=== PATIENT | female | born 1995 | race Caucasian/White ===

== ENCOUNTER 2020-07-25 17:08 | Emergency (ER) | payer BC, MEDICAID, SELFPAY ==
[2020-07-25 17:14] VITALS: BP 122/76; PULSE 104; RESP 16; TEMP 36.7; O2SAT 99; BMI 20.5
--- NOTE | 2020-07-25 18:01 | USR_ITS ---
PROCEDURE INFORMATION: Exam: US , Limited Exam date and time: 07/25/2020 7:18 PM Age: 25 years old Clinical indication: complicated by abdominal or pelvic pain; Lower; First trimester; Gestational age or lmp: 8 w 4 d; ; Prior surgery; Surgery date: 6+ months; Surgery type: C section; Additional info: 8 wks preg; Cramping/bleeding TECHNIQUE: Imaging protocol: Real-time ultrasound of the maternal uterus with image documentation. Exam focused on the clinical indication. Total images: 41 COMPARISON: US OB ALEXIS w BPP 80908/[id number] 11/09/2018 7:48 AM FINDINGS: Gestation: No visible intrauterine gestation. MATERNAL: Uterus: Nongravid appearing anteverted multiparous appearing uterus. No visible intrauterine gestational sac. Endometrial stripe measures 7 mm. Normal transition zone. Homogeneous echotexture to the endometrium. Cervix: Hemorrhagic clot suspected within the endocervical canal. Patient actively passing clots per diamond sizer and grader is note. Right adnexa: Right ovary appears sonographically normal. Right ovary measures 3.2 cm x 2 cm x 2.7 cm. Positive arterial flow. No visible right adnexal mass or cystic lesion within the field of view. Left adnexa: Left ovary appears sonographically normal. Left ovary measures 2.7 cm x 2 cm x 2.6 cm. Positive arterial flow. No visible left adnexal mass or cystic lesion within the field of view. Intraperitoneal space: No free fluid in the cul-de-sac. US/US OB limited [id number] IMPRESSION: 1. No visible intrauterine gestation. 2. Hemorrhagic clot suspected within the endocervical canal. Patient actively passing clots per diamond sizer and grader is note.
[2020-07-25 19:35] LABS: Basophils % 0.3 %; Eosinophils % 0.4 %; Hematocrit 44.1 % (37.0-47.0); Lymphocytes # 2.5 10^3/uL (0.8-4.8); Lymphocytes % 34.9 %; Mean Corpuscular HGB Conc 31.7 g/dL (30.0-36.0); Mean Corpuscular Hemoglobin 28.1 pg (28.0-34.0); Mean Corpuscular Volume 88.4 fL (81-99); Mean Platelet Volume 11.1 fL (7.4-10.4); Monocytes # 0.5 10^3/uL (0.2-0.9); Monocytes % 6.7 %; Neutrophils # 4.12 10^3/uL (1.8-7.7); Neutrophils % 57.6 %; Nucleated Red Blood Cells % 0 %; Platelet Count 179 10^3/cmm (130-400); Red Blood Count 4.99 10^6/uL (4.1-5.3); Red Cell Distribution Width 13.1 % (12.1-15.1); White Blood Count 7.2 10^3/uL (4.0-10.0)
[2020-07-25 20:10] LABS: Alanine Aminotransferase 10 U/L (0-33); Albumin Level 4.5 g/dL (3.5-5.2); Alkaline Phosphatase 49 IU/L (35-105); Anion Gap 12.5 (5-19); Aspartate Amino Transferase 12 U/L (0-32); Blood Urea Nitrogen 8 mg/dL (6-20); Calcium 9.1 mg/dL (8.5-10.5); Carbon Dioxide 25 mmol/L (22-29); Chloride 106 mmol/L (98-107); Globulin 2.8 g/dL (1.3-4.6); Glomerular Filtration Rate 149.1 mL/min (90-130); Glucose 84 mg/dL (65-115); Osmolality Calculated 288 mOsm/kg (285-295); Potassium 3.5 mmol/L (3.5-5.1); Sodium 140 mmol/L (136-145); Total Bilirubin 0.2 mg/dL (0.15-1.2); Total Protein 7.3 g/dL (6.6-8.7)
[2020-07-25 22:17] VITALS: O2SAT 98
--- NOTE | 2020-07-25 22:24 | ED_ITS ---
HPI - Female Genitourinary General: Chief complaint: Vaginal Bleeding Stated complaint: Poss Miscarriage Time Seen by Provider: 07/25/20 21:59 Source: patient Mode of arrival: ambulatory Limitations: no limitations History of Present Illness: HPI Narrative: Patient is a very nice 25-year-old female at approximately 8 weeks here for complaints of vaginal bleeding and cramping that began a few hours prior to arrival. Patient tells me bleeding initially was scant however quickly progressed into heavy bleeding with clots as well as cramping. She is concerned she most likely is experiencing a miscarriage. Patient denies lightheadedness/dizziness or passing out episodes. She does tell me since arrival to the ED the bleeding is improving. MD elicited complaint: vaginal bleeding Onset (ago): hour(s) Severity: moderate Quality of pain: cramping Vaginal discharge: none Vaginal bleeding: moderate, clots and POC/tissue Exacerbating factors: none Relieving factors: none Associated symptoms: Reports abdominal pain (cramping); Deny headache(s), nausea or vaginal discharge Patient : Yes Review of Systems Const: Denies: fever(s), chills, body aches or fatigue Card: Denies: chest pain Resp: Denies: dyspnea GI: Reports: abdominal pain (cramping); Denies: nausea, vomiting or diarrhea : Reports: vaginal bleeding and pelvic pain (cramping); Denies: flank pain, dysuria, vaginal odor or vaginal discharge Musc: Denies: neck pain or back pain Skin/Breast: Denies: rash Neuro: Denies: headache(s) [facility] ED PFSH: Social History (Updated 04/09/20 @ 15:04 by Valerie Davidson LPN) Smoking and tobacco status: never smoked Physical Exam Const: COMMON NORMALS: no acute distress, average body habitus, patient oriented x3, no limitations, healthy appearing, alert and well nourished GI: PALPATION: Yes Tenderness to palpation present (GI) (lower abdominal cramping) : OB/EXTERNAL & SPECULUM: Deferred OB/external & speculum exam MANUAL OB EXAM: Deferred manual OB exam Neuro: COMMON NORMALS: patient oriented x3 SENSORIUM/ORIENTATION: Yes alert Course Vital Signs: Vital signs: Vital Signs Temperature 98.1 F 07/25/20 17:14 Pulse Rate 80 07/25/20 22:41 Respiratory Rate 16 07/25/20 17:14 Blood Pressure 116/77 07/25/20 22:41 Pulse Oximetry 99 07/25/20 22:41 MDM - Female MDM Narrative: Medical decision making narrative: Patient is not tachycardic or hypotensive. H/H are stable. OB US showing no visible intrauterine gestation. hCG today is 260. Recommend she follow-up with Dr. Acosta in the next 3 to 5 days so he may continue to monitor patient. Strict return to ED precautions given regarding worsening bleeding, severe abdominal pain/cramping, fevers, or any other concerns she may have. Lab Data: Labs: Lab Results 07/25/20 07/25/20 07/25/20 Range/Units 19:20 19:20 19:20 WBC 7.2 (4.0-10.0) 10^3/ uL RBC 4.99 (4.1-5.3) 10^6/u L Hgb 14.0 (11.5-15.3) g/dL Hct 44.1 (37.0-47.0) % MCV 88.4 (81-99) fL MCH 28.1 (28.0-34.0) pg MCHC 31.7 (30.0-36.0) g/dL RDW 13.1 (12.1-15.1) % Plt Count 179 (130-400) 10^3/c mm MPV 11.1 H (7.4-10.4) fL Neut % (Auto) 57.6 % Lymph % (Auto) 34.9 % [place] % (Auto) 6.7 % Eos % (Auto) 0.4 % Baso % (Auto) 0.3 % Neut # (Auto) 4.12 (1.8-7.7) 10^3/u L Lymph # (Auto) 2.5 (0.8-4.8) 10^3/u L [place] # (Auto) 0.5 (0.2-0.9) 10^3/u L Eos # (Auto) 0.0 (0.0-0.8) 10^3/u L Baso # (Auto) 0.0 (0.0-0.1) 10^3/u L Nucleated RBC % (a uto) 0 % Nucleated RBCs # 0.0 /100WBC Sodium 140 (136-145) mmol/L Potassium 3.5 (3.5-5.1) mmol/L Chloride 106 (98-107) mmol/L Carbon Dioxide 25 (22-29) mmol/L Anion Gap 12.5 (5-19) BUN 8 (6-20) mg/dL Creatinine 0.5 (0.5-0.9) mg/dL GFR Calculation 149.1 H (90-130) mL/min Glucose 84 (65-115) mg/dL Calculated Osmolal ity 288 (285-295) mOsm/k g Calcium 9.1 (8.5-10.5) mg/dL Total Bilirubin 0.2 (0.15-1.2) mg/dL AST 12 (0-32) U/L ALT 10 (0-33) U/L Alkaline Phosphata se 49 (35-105) IU/L Total Protein 7.3 (6.6-8.7) g/dL Albumin 4.5 (3.5-5.2) g/dL Globulin 2.8 (1.3-4.6) g/dL Ser , Carter i-Qnt 260.10 mIU/mL Blood Type A Positive Rho(D) Type Positive / 4+ Imaging Data: US OB: Radiologist's impression: [address] [address] Ultrasound Report Signed Patient: Karma Lam Unit #: [id number] : 1995 Age/Sex: 25 / F ADM Date: 07/25/20 Loc: ER Room/Bed: Attending Dr: Ordering Provider/Ordering MD: Nancy Velasco Date of Service: 07/25/20 Procedure(s): US OB limited [id number] Accession Number(s): [id number] Report Number: [id number] PROCEDURE INFORMATION: Exam: US , Limited Exam date and time: 07/25/2020 7:18 PM Age: 25 years old Clinical indication: complicated by abdominal or pelvic pain; Lower; First trimester; Gestational age or lmp: 8 w 4 d; ; Prior surgery; Surgery date: 6+ months; Surgery type: C section; Additional info: 8 wks preg; Cramping/bleeding TECHNIQUE: Imaging protocol: Real-time ultrasound of the maternal uterus with image documentation. Exam focused on the clinical indication. Total images: 41 COMPARISON: US OB ALEXIS w BPP [id number] 11/09/2018 7:48 AM FINDINGS: Gestation: No visible intrauterine gestation. MATERNAL: Uterus: Nongravid appearing anteverted multiparous appearing uterus. No visible intrauterine gestational sac. Endometrial stripe measures 7 mm. Normal transition zone. Homogeneous echotexture to the endometrium. Cervix: Hemorrhagic clot suspected within the endocervical canal. Patient actively passing clots per assurance sourcing manager is note. Right adnexa: Right ovary appears sonographically normal. Right ovary measures 3.2 cm x 2 cm x 2.7 cm. Positive arterial flow. No visible right adnexal mass or cystic lesion within the field of view. Left adnexa: Left ovary appears sonographically normal. Left ovary measures 2.7 cm x 2 cm x 2.6 cm. Positive arterial flow. No visible left adnexal mass or cystic lesion within the field of view. Intraperitoneal space: No free fluid in the cul-de-sac. US/US OB limited [id number] IMPRESSION: 1. No visible intrauterine gestation. 2. Hemorrhagic clot suspected within the endocervical canal. Patient actively passing clots per assurance sourcing manager is note. Dictated By: Mark Cagle Signed By: Mark Cagle Signed Date/Time: 07/25/202000 DD/ 58 Discharge Plan Discharge Patient Disposition: Home Clinical Impression: Spontaneous miscarriage Condition: Stable Prescriptions: No Action No Known Home Medications RF: 0 Discharge Orders: Discharge ED (Routine); Ordered 07/25/20 Ordered By: Nancy Velasco Patient Instructions: Spontaneous Miscarriage (ED) Activity Restrictions/Additional Instructions: As we discussed please follow-up with Dr. Acosta in the next 1 to 2 days so he may re-evaluate your bleeding. Please return to the emergency department for worsening or severe bleeding, lightheadedness, dizziness, severe pelvic cramping, passing out episodes, or any other concerns you may have. Coding Level of Care Code ED Head Housekeeper for Filippo Villar
[2020-07-25 22:41] VITALS: BP 116/77; PULSE 80; O2SAT 99
== END 2020-07-25 22:42 | disposition home or self-care (01) ==
PROVIDERS: Emergency Provider Physician Assistant
DX: O03.9 Complete or unspecified spontaneous abortion without complication (principal)
CPT/HCPCS: 76815; 80053; 84702; 85025; 86900; 99283

== ENCOUNTER → 2020-10-03 10:54 | Outpatient (BNVA) | payer BC, MEDICAID, SELFPAY | PROVIDERS: Visit Provider Nurse Practitioner Family | DX: Z20.822 Contact with and (suspected) exposure to COVID-19 (principal); J06.9 Acute upper respiratory infection, unspecified | CPT/HCPCS: 87635 ==

== ENCOUNTER → 2020-10-05 16:04 | Outpatient (BNVA) | payer BC, MEDICAID, SELFPAY | PROVIDERS: Visit Provider Registered Nurse Neonatal Intensive Care | DX: Z20.822 Contact with and (suspected) exposure to COVID-19 (principal) | CPT/HCPCS: 87635 ==

== ENCOUNTER 2021-01-30 08:03 | Emergency (ER) | payer BC, MEDICAID, SELFPAY ==
[2021-01-30 08:14] VITALS: BP 112/76; PULSE 91; RESP 18; TEMP 36.6; O2SAT 100; BMI 19.8
--- NOTE | 2021-01-30 08:31 | CT_ITS ---
WS: [id number] CT HEAD TECHNIQUE: Noncontrast CT of the head obtained from the skullbase to the vertex. CLINICAL INFORMATION: new onset HAs x 2 mo; presyncope COMPARISON: None. DLP: 818.[address] scans at [facility] use at least one of these dose optimization techniques: automated e xposure control; mA and/or kV adjustment per patient size (includes targeted exams where dose is matc hed to clinical indication); or iterative reconstruction. FINDINGS: No evidence of intracranial hemorrhage or mass effect. Ventricular system and basal cisterns are hammer ntNo extra-axial fluid collections. No evidence of mass or mass effect. Normal ovalle-white differentia tion. Partial opacification right maxillary sinus and sphenoid sinus compatible with sinusitis. Mastoid air cells well aerated.. CT/CT head wo con* [id number] IMPRESSION: 1. No evidence of intracranial hemorrhage or mass effect. 2. Partial opacification right maxillary sinus and sphenoid sinus compatible w ith sinusitis 3. No acute intracranial findings.
--- NOTE | 2021-01-30 08:32 | W.ED.HA ---
Documented by User: BREA Hernandez 01/30/21 09:57 HPI - Headache General: Chief Complaint: Headache Stated Complaint: SEVERE H/A SINCE SAT PASSED OUT IN SHOWER Time Seen by Provider: 01/30/21 08:08 Source: patient Mode of arrival: ambulatory Limitations: no limitations History of Present Illness: HPI Narrative: Patient is a nice 25-year-old female who presents to ED today with complaint of a severe headache. Patient tells me over the past 2 months she has been experiencing severe headaches to the point where she is unable to care for her child which is very uncharacteristic for her. She states she gets very nauseous with these headaches. Prior to 2 months ago she would experience a very mild headache on a rare occasion but nothing like these. She states she has tried to see a chiropractor thinking it could be secondary to her neck needing realignment. She has seen an powerplant operator to get her vision checked as she will sometimes experience blurry vision during these episodes. She has taken OTC analgesics without relief. She has tried to alter caffeine intake without noticing much difference. Patient states this headache started on Thursday and is the worst one to date. She states she was in the shower earlier and had what she describes as a presyncopal episode. She states she did not get lightheaded or dizzy but just felt like my body quit working and almost fell. She denies chest pain, shortness of breath, difficulty breathing, palpitations. Patient states she felt jittery and she was signing paperwork upon arrival to the ED. MD elicited complaint: headache Onset (ago): week(s) Location: frontal Severity: severe Exacerbating factors: none Relieving factors: nothing Associated symptoms: Reports nausea; Deny chest pain, confusion, fever(s), lightheadedness, malaise, rash, syncope or vomiting Treatments prior to arrival: none Review of Systems Const: Denies: fever(s), chills, body aches, fatigue or malaise Eyes: Reports: blurry vision (during HAs); Denies: photophobia, eye discomfort, eye discharge, eye redness, dry eyes, floaters or seeing flashes ENMT: Denies: throat pain, odynophagia, nasal discharge or nasal congestion Card: Denies: chest pain, palpitations, irregular heart rhythm, lightheadedness, syncope or dyspnea on exertion Resp: Denies: dyspnea, productive cough or pain on inspiration GI: Reports: nausea; Denies: abdominal pain, vomiting, heartburn or diarrhea : Denies: flank pain or dysuria Musc: Denies: neck pain, back pain or joint pain Skin/Breast: Denies: rash Neuro: Reports: headache(s); Denies: numbness in extremities, weakness in extremities, sensory changes, lack of coordination, difficulty walking, frequent falls, dizziness, vertigo or confusion PFSH ED PFSH: Social History Smoking and tobacco status: never smoked Physical Exam Const: COMMON NORMALS: no acute distress, average body habitus, patient oriented x3, no limitations, healthy appearing, alert and well nourished GENERAL APPEARANCE: cooperative ORIENTATION/CONSCIOUSNESS: Yes awake, Yes oriented to person, Yes oriented to place and Yes oriented to time HENMT: COMMON NORMALS: normocephalic and atraumatic HEAD & SCALP: normal to inspection, normocephalic and atraumatic FACE & SINUS: normal facial exam Neck/C-Spine: COMMON NORMALS: full ROM, no lymphadenopathy and no meningeal signs Chest: COMMONS NORMALS: normal inspection of the chest Resp: COMMON NORMALS: normal respiratory effort and clear to auscultation bilaterally AUSCULTATION: clear to auscultation bilaterally Cardio: COMMON NORMALS: regular rate and regular rhythm RATE: regular rate RHYTHM: regular rhythm : COMMON NORMALS: Yes no CVA tenderness BLADDER/KIDNEY EXAM: Yes no CVA tenderness Back/Pelvis: COMMON NORMALS: no CVA tenderness and thoracic and lumbar spine normal to inspection Extremity: COMMON NORMALS: normal to inspection Neuro: DONNA COMA SCALE: document GCS findings Donna coma scale eye opening: Spontaneous Donna coma scale verbal response: Orientated Donna coma scale motor response: Obey commands Donna coma scale total score: 15 COMMON NORMALS: patient oriented x3, CN's II-XII intact bilaterally, moves all extremities, no focal motor deficits, no sensory deficits noted and gait normal SENSORIUM/ORIENTATION: Yes alert, Yes oriented to person, Yes oriented to place and Yes oriented to time MENINGEAL SIGNS: Yes no meningeal signs SPEECH: speech normal GAIT: Yes Normal gait present Skin: COMMON NORMALS: no rashes or lesions noted GENERAL SKIN EXAM: no rashes or lesions noted Course Vital Signs: Vital signs: Vital Signs Temperature 97.8 F 01/30/21 08:14 Pulse Rate 78 01/30/21 09:00 Respiratory Rate 16 01/30/21 09:00 Blood Pressure 104/68 01/30/21 09:40 Pulse Oximetry 98 01/30/21 09:40 MDM - Headache MDM Narrative: Medical decision making narrative: ALMODOVAR down from an 8/10 to a 4/10 and she feels comfortable going home. Vitals stable. Labs unremarkable. CT imaging negative. No abnormalities noted on physical exam. Recommend followup with PCP in the next 1-2 weeks for further evaluation and treatment. Lab Data: Labs: Lab Results 01/30/21 01/30/21 01/30/21 09:02 09:02 09:02 WBC 5.1 10^3/uL 10^3/ uL (4.0-10.0) RBC 4.76 10^6/uL 10^6 /uL (4.1-5.3) Hgb 13.3 g/dL g/dL (11.5-15.3) Hct 40.0 % % (37.0-47.0) MCV 84.0 fl fl (81-99) MCH 27.9 pg L pg (28.0-34.0) MCHC 33.3 g/dL g/dL (30.0-36.0) RDW 12.8 % % (12.1-15.1) Plt Count 178 10^3/cmm 10^3 /cmm (130-400) MPV 10.7 fL H fL (7.4-10.4) Neut % (Auto) 60.3 % % Lymph % (Auto) 32.2 % % [place] % (Auto) 6.3 % % Eos % (Auto) 0.6 % % Baso % (Auto) 0.4 % % Neut # (Auto) 3.07 10^3/uL 10^3 /uL (1.8-7.7) Lymph # (Auto) 1.6 10^3/uL 10^3/ uL (0.8-4.8) [place] # (Auto) 0.3 10^3/uL 10^3/ uL (0.2-0.9) Eos # (Auto) 0.0 10^3/uL 10^3/ uL (0.0-0.8) Baso # (Auto) 0.0 10^3/uL 10^3/ uL (0.0-0.1) Nucleated RBC % (a uto) 0 % % Nucleated RBCs # 0.0 /100WBC /100W BC Sodium 138 mmol/L mmol/L (136-145) Potassium 4.1 mmol/L mmol/L (3.5-5.1) Chloride 105 mmol/L mmol/L (98-107) Carbon Dioxide 24 mmol/L mmol/L (22-29) Anion Gap 13.1 (5-19) BUN 7 mg/dL mg/dL (6-20) Creatinine 0.5 mg/dL mg/dL (0.5-0.9) GFR Calculation 149.1 mL/min H mL /min (90-130) Glucose 86 mg/dL mg/dL (65-115) Calculated Osmolal ity 283 mOsm/kg L mOs m/kg (285-295) Calcium 8.8 mg/dL mg/dL (8.5-10.5) Total Bilirubin 0.3 mg/dL mg/dL (0.15-1.2) AST 12 U/L U/L (0-32) ALT 8 U/L U/L (0-33) Alkaline Phosphata se 45 IU/L IU/L (35-105) Total Protein 6.5 g/dL L g/dL (6.6-8.7) Albumin 4.1 g/dL g/dL (3.5-5.2) Globulin 2.4 g/dL g/dL (1.3-4.6) TSH 0.81 uIU/mL uIU/m L (0.27-4.20) HCG, Qual Negative (Negative) Imaging Data^: CT Head: Radiologist's impression: [address] [id number] Scan ReportSigned Patient: Karma Lam #: [id number]: [id number]#:[id number]/Sex: 25 / FADM Date: 01/30/21Loc: ERRoom/Bed:Attending Dr: Ordering Provider/Ordering MD: Nancy Velasco Date of Service: 01/30/21 Procedure(s): CT head wo con* [id number] Accession Number(s): [id number] Report Number: [id number] WS: [id number] CT HEAD TECHNIQUE: Noncontrast CT of the head obtained from the skullbase to the vertex. CLINICAL INFORMATION: new onset HAs x 2 mo; presyncope COMPARISON: None. DLP: 818.[address] scans at [facility] use at least one of these dose optimization techniques: automated exposure control; mA and/or kV adjustment per patient size (includes targeted exams where dose is matched to clinical indication); or iterative reconstruction. FINDINGS: No evidence of intracranial hemorrhage or mass effect. Ventricular system and basal cisterns are patentNo extra-axial fluid collections. No evidence of mass or mass effect. Normal ovalle-white differentiation. Partial opacification right maxillary sinus and sphenoid sinus compatible with sinusitis. Mastoid air cells well aerated.. CT/CT head wo con* [id number] IMPRESSION: 1. No evidence of intracranial hemorrhage or mass effect. 2. Partial opacification right maxillary sinus and sphenoid sinus compatible with sinusitis 3. No acute intracranial findings. Dictated By:Fernandez Ortiz MDSigned By:Fernandez Ortiz MDSigned Date/Time:01/30/21/ 8 Discharge Plan Discharge Patient Disposition: Home Clinical Impression: Headache Qualifiers: Headache type: unspecified Headache chronicity pattern: episodic headache Intractability: not intractable Qualified Code(s): R51.9 - Headache, unspecified Condition: Stable Prescriptions: No Action Tylenol Ex Str Rapid Release 500 mg Tablet 1,000 mg PO Q4H PRN (Reason: Pain) RF: 0 ibuprofen 200 mg Tablet 400 mg PO Q4H PRN (Reason: Pain) RF: 0 Discharge Orders: Discharge ED (Routine); Ordered 01/30/21 Ordered By: Nancy Velasco Patient Instructions: Headache - Migraine (Adult), Migraine Headache (ED) Activity Restrictions/Additional Instructions: As we discussed please follow-up with your primary care provider in the next 1 to 2 weeks for further evaluation of headaches. They may also place you on prophylactic and/or abortive medications for treatment of these. Coding Level of Care Code ED Hat Band Attacher for Chg Fwd Exam Comprehensive Documented by User: Abdiaziz Zuleta DO 01/30/21 15:16 HPI - Headache General: Chief Complaint: Headache Stated Complaint: SEVERE H/A SINCE SAT PASSED OUT IN SHOWER Time Seen by Provider: 01/30/21 08:08 PFS ED PFSH: Social History Smoking and tobacco status: never smoked Course Vital Signs: Vital signs: Vital Signs Temperature 97.8 F 01/30/21 08:14 Pulse Rate 78 01/30/21 09:00 Respiratory Rate 16 01/30/21 09:00 Blood Pressure 104/68 01/30/21 09:40 Pulse Oximetry 98 01/30/21 09:40 MDM - Headache MDM Narrative: Medical decision making narrative: Chart reviewed and patient discussed with midlevel. Agree with assessment and plan. Lab Data: Labs: Lab Results 01/30/21 01/30/21 01/30/21 09:02 09:02 09:02 WBC 5.1 10^3/uL 10^3/ uL (4.0-10.0) RBC 4.76 10^6/uL 10^6 /uL (4.1-5.3) Hgb 13.3 g/dL g/dL (11.5-15.3) Hct 40.0 % % (37.0-47.0) MCV 84.0 fl fl (81-99) MCH 27.9 pg L pg (28.0-34.0) MCHC 33.3 g/dL g/dL (30.0-36.0) RDW 12.8 % % (12.1-15.1) Plt Count 178 10^3/cmm 10^3 /cmm (130-400) MPV 10.7 fL H fL (7.4-10.4) Neut % (Auto) 60.3 % % Lymph % (Auto) 32.2 % % [place] % (Auto) 6.3 % % Eos % (Auto) 0.6 % % Baso % (Auto) 0.4 % % Neut # (Auto) 3.07 10^3/uL 10^3 /uL (1.8-7.7) Lymph # (Auto) 1.6 10^3/uL 10^3/ uL (0.8-4.8) [place] # (Auto) 0.3 10^3/uL 10^3/ uL (0.2-0.9) Eos # (Auto) 0.0 10^3/uL 10^3/ uL (0.0-0.8) Baso # (Auto) 0.0 10^3/uL 10^3/ uL (0.0-0.1) Nucleated RBC % (a uto) 0 % % Nucleated RBCs # 0.0 /100WBC /100W BC Sodium 138 mmol/L mmol/L (136-145) Potassium 4.1 mmol/L mmol/L (3.5-5.1) Chloride 105 mmol/L mmol/L (98-107) Carbon Dioxide 24 mmol/L mmol/L (22-29) Anion Gap 13.1 (5-19) BUN 7 mg/dL mg/dL (6-20) Creatinine 0.5 mg/dL mg/dL (0.5-0.9) GFR Calculation 149.1 mL/min H mL /min (90-130) Glucose 86 mg/dL mg/dL (65-115) Calculated Osmolal ity 283 mOsm/kg L mOs m/kg (285-295) Calcium 8.8 mg/dL mg/dL (8.5-10.5) Total Bilirubin 0.3 mg/dL mg/dL (0.15-1.2) AST 12 U/L U/L (0-32) ALT 8 U/L U/L (0-33) Alkaline Phosphata se 45 IU/L IU/L (35-105) Total Protein 6.5 g/dL L g/dL (6.6-8.7) Albumin 4.1 g/dL g/dL (3.5-5.2) Globulin 2.4 g/dL g/dL (1.3-4.6) TSH 0.81 uIU/mL uIU/m L (0.27-4.20) HCG, Qual Negative (Negative) Discharge Plan Discharge Patient Disposition: Home Clinical Impression: Headache Qualifiers: Headache type: unspecified Headache chronicity pattern: episodic headache Intractability: not intractable Qualified Code(s): R51.9 - Headache, unspecified Condition: Stable Prescriptions: No Action Tylenol Ex Str Rapid Release 500 mg Tablet 1,000 mg PO Q4H PRN (Reason: Pain) RF: 0 ibuprofen 200 mg Tablet 400 mg PO Q4H PRN (Reason: Pain) RF: 0 Discharge Orders: Discharge ED (Routine); Ordered 01/30/21 Ordered By: Nancy Velasco Patient Instructions: Headache - Migraine (Adult), Migraine Headache (ED) Activity Restrictions/Additional Instructions: As we discussed please follow-up with your primary care provider in the next 1 to 2 weeks for further evaluation of headaches. They may also place you on prophylactic and/or abortive medications for treatment of these. Coding Level of Care Code ED Hat Band Attacher for Filippo Fwd Exam Comprehensive
[2021-01-30 09:00] VITALS: BP 112/63; PULSE 78; RESP 16; O2SAT 98
[2021-01-30 09:06] LABS: Basophils % 0.4 %; Eosinophils % 0.6 %; Hemoglobin 13.3 g/dL (11.5-15.3); Lymphocytes # 1.6 10^3/uL (0.8-4.8); Lymphocytes % 32.2 %; Mean Corpuscular HGB Conc 33.3 g/dL (30.0-36.0); Mean Corpuscular Hemoglobin 27.9 pg (28.0-34.0); Mean Platelet Volume 10.7 fL (7.4-10.4); Monocytes # 0.3 10^3/uL (0.2-0.9); Monocytes % 6.3 %; Neutrophils # 3.07 10^3/uL (1.8-7.7); Neutrophils % 60.3 %; Nucleated Red Blood Cells % 0 %; Platelet Count 178 10^3/cmm (130-400); Red Blood Count 4.76 10^6/uL (4.1-5.3); Red Cell Distribution Width 12.8 % (12.1-15.1); White Blood Count 5.1 10^3/uL (4.0-10.0)
[2021-01-30] MEDS: diphenhydrAMINE 50 mg/mL SDV 1mL 25 MG IVP (09:14)
[2021-01-30] MEDS: dexamethasone 10 mg/mL INJ 6 MG IV (09:14)
[2021-01-30] MEDS: ondansetron 2 mg/ML SDV 2 mL 4 MG IVP (09:15)
[2021-01-30] MEDS: ketorolac 60 mg/2 mL INJ 30 MG IVP (09:15)
[2021-01-30 09:29] LABS: HCG, Serum Qual Negative (Negative)
[2021-01-30 09:40] VITALS: BP 104/68; O2SAT 98
[2021-01-30 09:48] LABS: Alanine Aminotransferase 8 U/L (0-33); Albumin Level 4.1 g/dL (3.5-5.2); Alkaline Phosphatase 45 IU/L (35-105); Anion Gap 13.1 (5-19); Aspartate Amino Transferase 12 U/L (0-32); Blood Urea Nitrogen 7 mg/dL (6-20); Calcium 8.8 mg/dL (8.5-10.5); Carbon Dioxide 24 mmol/L (22-29); Chloride 105 mmol/L (98-107); Globulin 2.4 g/dL (1.3-4.6); Glomerular Filtration Rate 149.1 mL/min (90-130); Glucose 86 mg/dL (65-115); Osmolality Calculated 283 mOsm/kg (285-295); Potassium 4.1 mmol/L (3.5-5.1); Sodium 138 mmol/L (136-145); Thyroid Stimulating Hormone 0.81 uIU/mL (0.27-4.20); Total Bilirubin 0.3 mg/dL (0.15-1.2); Total Protein 6.5 g/dL (6.6-8.7)
== END 2021-01-30 10:16 | disposition home or self-care (01) ==
PROVIDERS: Emergency Provider Physician Assistant
DX: R51.9 Headache, unspecified (principal)
CPT/HCPCS: 70450; 80053; 84443; 84703; 85025; 96374; 96375; 99284; J1100; J1200; J1885; J2405

== ENCOUNTER 2021-12-16 06:48 | Inpatient (IN) | payer BC, MEDICAID, SELFPAY ==
--- NOTE | 2021-11-27 16:03 | P.ANESASSM_ITS ---
Pre-Anesthetic Assessment Height/Weight: Height 1.73 m Preop Diagnosis: Repeat c section Operation Date: 12/16/21 07:00 Proposed Procedures p Section Repeat(Not Applicable) - Vinny Carter MD Familial anesthetic complications: None Was Beta Crow taken within 24 hours: N/A Was Clonidine taken within 24 hours: N/A Last intake: Full stomach Social No alcohol and No tobacco Exam alert, oriented x 3, clear to auscultation bilaterally and regular rate & rhythm Airway Submandibular: within normal limits Cervical ROM: within normal limits Mallampati: Class II Dentition: full History/ROS No significant history except as noted and No significant complaints Pulmonary None reported CV/HEM None reported None reported Hepatic None reported GI Gastroesophageal Reflux Disease Metabolic None reported Musc/skel None reported Neuropsych None reported Anesthetic Plan ASA status: 2 Anesthesia: Anesthesia Evaluation, Eval. for regional block, General and Regional (specify below) (Spinal) Other: We discussed risk and benefits of spinal anesthesia including infection, paralysis/catastrophic nerve injury, back bruising/pain, PDPH, conversion to general in case of spinal failure, intraoperative and PONV, life threatening allergic reaction, post operative ICU admission requiring prolonged intubation, stroke, heart attack. Risk of > 500 ml blood loss (7ml/kg in children): No Medications/Allergies Home Medications Medication Instructions Recorded Confirmed Last Taken Type acetaminophen 500 mg tablet 1,000 mg PO Q4H PRN Pain 01/30/21 01/30/21 01/30/21 07:00 History ibuprofen 200 mg tablet 400 mg PO Q4H PRN Pain 01/30/21 01/30/21 Unknown History Allergies Allergy/AdvReac Type Severity Reaction Status Date / Time morphine Allergy rash Verified 01/30/21 08:59 [facility] Anesthesia Social History Smoking and tobacco status: never smoked Data Anesthesia Cardiac Studies: No Data to Display
[2021-12-16] VITALS (99 sets, daily range): BP systolic 93–135; BP diastolic 46–74; PULSE 77–122; RESP 16–18; TEMP 36.1–37; O2SAT 86–100; BMI 26.3
[2021-12-16 05:46] LABS: Basophils % 0.2 %; Eosinophils % 0.3 %; Hematocrit 31.2 % (37.0-47.0); Hemoglobin 9.6 g/dL (11.5-15.3); Lymphocytes # 2.1 10^3/uL (0.8-4.8); Lymphocytes % 23.3 %; Mean Corpuscular HGB Conc 30.8 g/dL (30.0-36.0); Mean Corpuscular Hemoglobin 23.5 pg (28.0-34.0); Mean Corpuscular Volume 76.5 fl (81-99); Mean Platelet Volume 11.2 fL (7.4-10.4); Monocytes # 0.6 10^3/uL (0.2-0.9); Monocytes % 6.3 %; Neutrophils # 6.06 10^3/uL (1.8-7.7); Neutrophils % 69.1 %; Nucleated Red Blood Cells % 0 %; Platelet Count 160 10^3/cmm (130-400); Red Blood Count 4.08 10^6/uL (4.1-5.3); Red Cell Distribution Width 15.3 % (12.1-15.1); White Blood Count 8.8 10^3/uL (4.0-10.0)
[2021-12-16] MEDS: lactated ringers 1,000 ML 999 ML IV (05:54)
--- NOTE | 2021-12-16 06:39 | P.ANESUD_ITS ---
Pre-Anesthetic Update Pre-Anesthetic Assessment: Date of Surgery/Procedure: 12/16/21 Preop Chelsey gnosis: Repeat c section Proposed Procedure: Operation Date: 12/16/21 07:00 Proposed Procedures p Section Repeat(Not Applicable) - Vinny Carter MD Last Intake: Intake Last Liquid Date 12/15/21 Last Liquid Time 20:30 Last Solid Date 12/15/21 Last Solid Time 20:30 Labs Last 48hrs: Short CBC 12/16/21 Range/Units 05:28 WBC 8.8 (4.0-10.0) 10^3/ uL Hgb 9.6 L (11.5-15.3) g/dL Hct 31.2 L (37.0-47.0) % MCV 76.5 L (81-99) fl Plt Count 160 (130-400) 10^3/c mm Neut % (Auto) 69.1 % Neut # (Auto) 6.06 (1.8-7.7) 10^3/u L Vitals: Temperature 97.6 F 12/16/21 05:33 Temperature Source Oral 12/16/21 05:33 Pulse Rate 92 12/16/21 06:25 Pulse Rhythm 12/16/21 05:42 Pulse Strength 3+ Normal 12/16/21 05:42 Respiratory Rate 18 12/16/21 05:33 Respiratory Effort Non-Labored 12/16/21 05:42 Respiratory Depth Normal 12/16/21 05:42 Respiratory Patter n 12/16/21 05:42 Blood Pressure 112/60 12/16/21 06:25 Pulse Oximetry 98 12/16/21 05:50 Oxygen Delivery Me thod 12/16/21 05:42 Other Pertinent Information: Other Pertinent Information: no changes in health status anemia noted on labs discussed with Dr. Carter. Cardiac Studies: No Data to Display
--- NOTE | 2021-12-16 06:39 | PM.OBGYHP ---
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 Her has been unremarkable. Her labs have also been unremarkable. Her blood type is a positive. Her antibody screen was negative. Her glucose screen was negative. She is rubella immune. She was GBS positive. The remainder of her infectious disease profile was within normal limits. Present Details : 3 Para: 1 Review of Systems General: Reports: 10 or more systems reviewed and unremarkable except in HPI and below Const: Reports: fatigue; Denies: fever(s) Eyes: Denies: change in vision Card: Denies: chest pain Musc: Reports: back pain Vahid/Lymph: Denies: easy bruising Medications/Allergies Home Medications Medication Instructions Recorded Confirmed Last Taken Type acetaminophen 500 mg tablet 1,000 mg PO Q4H PRN Pain 01/30/21 01/30/21 01/30/21 07:00 History ibuprofen 200 mg tablet 400 mg PO Q4H PRN Pain 01/30/21 01/30/21 Unknown History Allergies Allergy/AdvReac Type Severity Reaction Status Date / Time morphine Allergy rash Verified 12/16/21 06:07 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 PFSH: Medical History (Updated 12/16/21 @ 06:43 by Vinny Carter MD) Depression Surgical History (Updated 12/16/21 @ 06:43 by Vinny Carter MD) History of appendectomy History of section History of cholecystectomy Social History Smoking and tobacco status: never smoked Vitals/I&O/Wt Last Vital Signs Temp 97.6 F 12/16/21 05:33 Pulse 92 12/16/21 06:25 Resp 18 12/16/21 05:33 BP 112/60 12/16/21 06:25 Pulse Ox 98 12/16/21 05:50 O2 Del Method 12/16/21 05:42 Weight last 48 hrs Weight 173 lb Physical Exam Const: COMMON NORMALS: patient oriented x3 and alert HENMT: COMMON NORMALS: moist oral mucous membranes HEAD & SCALP: normal to inspection Chest: COMMONS NORMALS: normal inspection of the chest Resp: COMMON NORMALS: clear to auscultation bilaterally AUSCULTATION: clear to auscultation bilaterally Cardio: COMMON NORMALS: regular rate and regular rhythm RATE: regular rate RHYTHM: regular rhythm GI: INSPECTION: Yes normal to inspection and Yes other (Gravid) Extremity: COMMON NORMALS: normal to inspection GENERAL: Yes edema (Trace) Neuro: COMMON NORMALS: patient oriented x3, moves all extremities and no sensory deficits noted SENSORIUM/ORIENTATION: Yes alert Psych: COMMON NORMALS: mental status grossly normal Skin: COMMON NORMALS: no rashes or lesions noted GENERAL SKIN EXAM: no rashes or lesions noted Data : 12/16/21 05:28 A&P Assessment and plan (1) 39 weeks gestation of : We will proceed with a lower transverse section. I discussed the risks with the patient and her . They have no further questions and wished to proceed. Her hemoglobin is marginal, so we will place a second IV for more access in case of unexpected blood loss. Attestations Medical Necessity Statement*: I anticipate routine and post care. Coding Level of Care Code Acute Cytogenetic Technician for Chg Fwd Diagnoses 39 weeks gestation of Z3A.39
[2021-12-16] MEDS: famotidine 20 mg/2 mL INJ IVP (09:34)
[2021-12-16] MEDS: citric acid-sodium citrate 30 mL UDC PO (09:34)
[2021-12-16] MEDS: metoclopramide 5 mg/mL SDV 2 mL 10 MG IVP (09:35)
--- NOTE | 2021-12-16 11:47 | PM.OP ---
Operative Report Date of procedure: December 16, 2021 Pre-op diagnosis: Preop Diagnosis Repeat c section Post-op diagnosis: 1. Repeat low-transverse section 2. Iatrogenic bladder tear 3. Removal of previous hypertrophic scar Procedure done: 1. Low transverse section 2. Bladder repair Specimens removed/disposition: 1. Male infant with a weight of 8 pounds 3 ounces and Apgars of 8 and 9 2. Placenta with a three-vessel cord delivered intact Surgeon: Vinny Carter Estimated blood loss (mL): 800 Complications: Iatrogenic bladder tear Procedure: The patient was brought back to the operating room where she was prepped and draped in usual sterile fashion. Anesthesia was found to be adequate. A lower transverse skin incision was then made with a #10 blade. I then dissected down to the underlying subcutaneous tissue until arriving at the prerectal fascia. The fascia was then nicked with the scalpel bilaterally. The fascial incisions were then carried laterally with Pozo scissors. Attention was then turned to the superior aspect of the incision which was grasped with kochers and tented up away from the underlying rectus abdominis muscles. The muscles were then dissected away from the fascia manually, and later with Pozo scissors. Attention was then turned to the inferior aspect of the incision, and the fascia was dissected away from the underlying muscle in similar fashion. The rectus abdominis muscles were then spread manually. The peritoneum was entered manually. Multiple adhesions were noted. After clearing adhesions excellent visualization of the uterus was noted. A lower transverse uterine incision was then made with a #10 blade. Upon arriving at the intrauterine cavity, the uterine incision was then extended manually. The was noted to be in vertex position. The baby was delivered without difficulty. After delivery of the head, the mouth and nose were suctioned at the site of the incision. There was no meconium. There was no nuchal cord. The remainder of the body was then delivered and placed on the abdomen. The cord was cut and clamped. The baby was then handed to the waiting nurse. The placenta was removed intact. There were a couple of adhesions on the superior aspect of the uterus that were lysed and cauterized. No further bleeding was noted from the stump of the adhesions after it was hemostatic. The uterus was externalized. The intrauterine cavity was cleansed of any remaining debris. The uterine incision was reapproximated in 2 layers. The first layer was performed with 0 Vicryl in a running locked stitch. The second layer was an imbricating stitch also using 0 Vicryl. The uterus was replaced into the abdomen. Blood was noted in the Harper bag. The dome of the bladder was carefully examined and a grade 4 4 cm full-thickness tear was noted in the bladder. The bladder epithelium was reapproximated with 5-0 chromic in a running stitch. An imbricating stitch including the serosa was then performed with 3-0 Monocryl. I examined the I reexamined the uterine incision and found it to be hemostatic. The rectus abdominis muscles were then reapproximated using 0 Vicryl in a running stitch. The fascia was then reapproximated using 0 Vicryl in running stitch. The skin was reapproximated using vikash. A sterile dressing was placed. All counts were correct x2. Both the mother and baby were in stable condition.
--- NOTE | 2021-12-16 13:43 | ANE.PACU2 ---
Inpatient post-anesthesia follow up: Airway intact: Yes Vital signs: Temperature 97.9 F Pulse Rate 101 Respiratory Rate 16 Blood Pressure 135/66 Pulse Oximetry 98 Oxygen Delivery Me thod Room Air Oxygen Flow Rate Fraction of Inspir ed Oxygen Hydration adequate: Yes Nausea and vomiting: No Pain level: 3 Mental status: Baseline Additional Comments: No new concerns, complaints per bedside RN.
[2021-12-16] MEDS: hyDROXYzine 25 mg Capsule 50 MG PO (14:20)
[2021-12-16] MEDS: HYDROcodone-acetaminophen 5-325 mg Tablet PO (17:52)
[2021-12-16] MEDS: ferrous sulfate EC 325 mg Tablet PO (17:53)
[2021-12-16] MEDS: lanolin oint 7 gm 1 APPLIC TOPICAL (17:53)
[2021-12-16] MEDS: docusate sodium 100 mg Capsule PO (17:53)
--- NOTE | 2021-12-16 19:01 | PC.NURSE ---
Pt has bladder laceration; rivera must stay in
[2021-12-16] MEDS: diphenhydrAMINE 50 mg/mL SDV 1mL 25 MG IVP (22:07)
[2021-12-16 22:11] LABS: Hematocrit 28.3 % (37.0-47.0); Hemoglobin 8.6 g/dL (11.5-15.3); Mean Corpuscular HGB Conc 30.4 g/dL (30.0-36.0); Mean Corpuscular Hemoglobin 23.4 pg (28.0-34.0); Mean Corpuscular Volume 77.1 fl (81-99); Mean Platelet Volume 11.2 fL (7.4-10.4); Platelet Count 140 10^3/cmm (130-400); Red Blood Count 3.67 10^6/uL (4.1-5.3); Red Cell Distribution Width 15.4 % (12.1-15.1); White Blood Count 9.7 10^3/uL (4.0-10.0)
[2021-12-17] MEDS: HYDROcodone-acetaminophen 5-325 mg Tablet PO ×3 (00:35→17:49)
[2021-12-17 04:28] VITALS: BP 107/58; PULSE 83
--- NOTE | 2021-12-17 07:20 | PM.OBGYPN ---
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 She is still having some difficulty with pain, but does not tolerate the hydrocodone well. She has been up a couple of times. She has not passed flatus. Her urine output has been excellent. She has been breast-feeding well. Her urine now has a slight pink tinge to it. Labor: Amniotic Membrane Status: Intact Monitor Mode: External Contraction Pattern: Occasional Vitals/I&O/Wt Last Vital Signs Temp 98.1 F 12/16/21 20:24 Pulse 83 12/17/21 04:28 Resp 18 12/16/21 12:48 BP 107/58 12/17/21 04:28 Pulse Ox 95 12/16/21 15:19 O2 Del Method 12/16/21 12:10 12/16/21 12/17/21 12/17/21 22:59 06:59 14:59 Output Total 650 / 2050 1400 / 3450 Balance -650 / -550 -1400 / -1950 Weight last 48 hrs Weight 173 lb Physical Exam Narrative: She is in no acute distress Lungs are clear auscultation bilaterally Her heart has a regular rate and rhythm Her fundus is below the umbilicus and firm Her dressing is clean, dry and intact Her extremities have trace edema Urinary Catheter Management: Harper: Cath Placed During This Visit: yes Reason for Continuing Indwelling Catheter: Other Urinary Catheter Date of Insertion: 12/16/21 Urinary Catheter Time of Insertion: 10:12 Data : 12/16/21 21:50 A&P Assessment and plan (1) 39 weeks gestation of : The patient is doing well. I anticipate will advance her diet at lunchtime. We will continue to encourage her to get up and walk around more. (2) History of section: (3) Status post bladder repair: We will continue to closely monitor her urine output. Since her urine only has a pink tinge, the risk of a clot blocking the Harper is reduced. If she continues to do well, I anticipate we can discharge her home tomorrow with a leg bag. We will keep her Harper in for at least a week to allow her bladder to decompress and heal. Attestations Medical Necessity Statement*: I anticipate discharge in 1 to 2 days if her urine continues to clear up, and she tolerates her diet well, and her pain improves Coding Level of Care Code Acute Team Cdl Driver for Filippo Villar Diagnoses 39 weeks gestation of Z3A.39 History of section Z98.891 Status post bladder repair Z98.890
[2021-12-17] MEDS: prenatal vitamin Capsule 1 CAP PO (08:35)
[2021-12-17] MEDS: ferrous sulfate EC 325 mg Tablet PO ×2 (08:35→17:49)
[2021-12-17] MEDS: docusate sodium 100 mg Capsule PO ×2 (08:36→17:49)
[2021-12-17] MEDS: ibuprofen 800 mg tablet PO ×3 (08:36→20:49)
[2021-12-17] MEDS: simethicone 80 mg Chew PO ×2 (08:40→17:49)
[2021-12-17 10:22] VITALS: BP 125/58; PULSE 88
[2021-12-17 10:24] VITALS: TEMP 36.9
[2021-12-17 12:48] VITALS: RESP 16
--- NOTE | 2021-12-17 17:10 | USR_ITS ---
PROCEDURE INFORMATION: Exam: US Pelvis Limited, Bladder Exam date and time: 12/17/2021 5:25 PM Age: 26 years old Clinical indication: Vaginal pain; Prior surgery; Surgery date: Post-operative (0-2 days); Surgery type: ; Additional info: Post surgical bladder tear repair, leaking around rivera; Bladder scan shows full bladder; TECHNIQUE: Imaging protocol: Real-time pelvic ultrasound with image documentation. COMPARISON: US OB >= 14 weeks fetus [id number] 08/07/2021 4:17 PM FINDINGS: Urinary bladder: The urinary bladder is partially distended with a calculated volume of 99 cc. A Rivera catheter with inflated balloon is visualized posterior and outside the urinary bladder. This is most likely located within the vagina. Intraperitoneal space: No free peritoneal fluid visualized. US/US bladder [id number] IMPRESSION: 1. Mildly distended urinary bladder with no visible Rivera catheter. 2. A Rivera catheter is visualized posterior to the urinary bladder, presumably within the vagina. Clinical correlation is recommended. If it is confirmed that the catheter enters the urethra, it is possible the catheter has penetrated into the peritoneal cavity. Balloon deflation and removal of the catheter is recommended.
[2021-12-17 18:00] VITALS: BP 120/78; PULSE 107; RESP 16; TEMP 36.7; O2SAT 97
--- NOTE | 2021-12-17 19:29 | PC.NURSE ---
1512 Dr. Carter notified that bladder scan was performed at 1430 and showed 369 mL. 30 mL was irrigated without difficulties. At 1505 200 mL was emptied from rivera. At 1510 bladder scanner performed and showed [address] Carter was notified about the above information. Received order to replace rivera catheter. At 1630 150 mL urine was emptied from rivera. At 1635 new rivera was inserted. 16F latex free catheter kit was used. No urine return. Kel red blood returned in the catheter, but none in the tubing or drainage bag. At 1646 bladder scanner revealed [address] Carter notified of the above information and received order for an ultrasound of the bladder. At approximately 1715 Dr. Carter and US at bedside. US confirms that rivera is in vaginal canal and not in bladder. US revealed approximately 90 mL urine in bladder and no obvious clots noted. Rivera was removed at 1720 and new 16F rivera kit placed at 1730. Urine return, blood tinged, but no clots. Dr. Carter updated at 1830 of the above information. Also reported that pt was having sever right rib pain and shoulder pain. Pt was in tears. Pt was given pain meds and simethicone and was educated about gas pain and the importance of ambulating. Pt has not passed gas.
[2021-12-17 22:21] VITALS: BP 119/57; PULSE 83; TEMP 35.8
[2021-12-18] MEDS: simethicone 80 mg Chew PO (01:16)
[2021-12-18 04:34] VITALS: BP 119/71; PULSE 74; RESP 15; TEMP 36.6; O2SAT 99
[2021-12-18] MEDS: ibuprofen 800 mg tablet PO ×2 (08:38→15:51)
[2021-12-18] MEDS: prenatal vitamin Capsule 1 CAP PO (08:38)
[2021-12-18] MEDS: docusate sodium 100 mg Capsule PO (08:38)
[2021-12-18] MEDS: ferrous sulfate EC 325 mg Tablet PO (08:38)
[2021-12-18 08:40] VITALS: BP 123/67; PULSE 111
[2021-12-18 16:48] VITALS: BP 116/62; PULSE 93; TEMP 36
--- NOTE | 2021-12-18 17:55 | PM.OBGYDC ---
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 The was unremarkable except for a bladder tear. The tear was repaired in 2 layers. The was then finished in usual fashion. On the subsequent day she was having difficulty with feeling spasms and urinating around the catheter. The bladder scan was demonstrating 200 to 300 cc in her bladder. As result I had them swap out her catheter. Unfortunately the catheter was actually placed in the vaginal vault rather than in the bladder. An ultrasound demonstrated that the bladder was doing well otherwise. The catheter was replaced into the bladder. Her diet was advanced. She passed flatus. Otherwise she felt fine without problems. Information Peripartum Data: Infant Delivery Method: Physical Exam Narrative: The patient is alert. She appears comfortable. Her heart has a regular rate and rhythm with no murmurs appreciated. Lungs are clear to auscultation bilaterally. Her fundus is firm and below the umbilicus. The urine in the Harper has a very slight pink-tinged Urinary Catheter Management: Harper: Cath Placed During This Visit: yes, but has since been removed by the nurse Reason for Continuing Indwelling Catheter: Other Urinary Catheter Date of Insertion: 12/17/21 Urinary Catheter Time of Insertion: 17:30 Date Urinary Catheter Removed: 12/17/21 Time Urinary Catheter Discontinued: 17:25 Discharge Data Studies Completed and Pending Completed Studies During Hospitalization Category Date Time [place] bladder [id number] Stat Ultrasound 12/17/21 17:10 Completed Radiology Impressions Bladder Ultrasound 12/17/21 17:10 IMPRESSION: 1. Mildly distended urinary bladder with no visible Harper catheter. 2. A Harper catheter is visualized posterior to the urinary bladder, presumably within the vagina. Clinical correlation is recommended. If it is confirmed that the catheter enters the urethra, it is possible the catheter has penetrated into the peritoneal cavity. Balloon deflation and removal of the catheter is recommended. ADDENDUM: 12/17/21 1824 THIS REPORT CONTAINS FINDINGS THAT MAY BE CRITICAL TO PATIENT CARE. The findings were verbally communicated via telephone conference with MCKENZIE CARTER at 6:22 PM CDT on 12/17/2021. The findings were acknowledged and understood. Laboratory Results WBC 9.7 10^3/uL (4.0-10.0) 12/16/21 21:50 RBC 3.67 10^6/uL (4.1-5.3) L 12/16/21 21:50 Hgb 8.6 g/dL (11.5-15.3) L 12/16/21 21:50 Hct 28.3 % (37.0-47.0) L 12/16/21 21:50 MCV 77.1 fl (81-99) L 12/16/21 21:50 MCH 23.4 pg (28.0-34.0) L 12/16/21 21:50 MCHC 30.4 g/dL (30.0-36.0) 12/16/21 21:50 RDW 15.4 % (12.1-15.1) H 12/16/21 21:50 Plt Count 140 10^3/cmm (130-400) 12/16/21 21:50 MPV 11.2 fL (7.4-10.4) H 12/16/21 21:50 Neut % (Auto) 69.1 % 12/16/21 05:28 Lymph % (Auto) 23.3 % 12/16/21 05:28 Davis % (Auto) 6.3 % 12/16/21 05:28 Eos % (Auto) 0.3 % 12/16/21 05:28 Baso % (Auto) 0.2 % 12/16/21 05:28 Neut # (Auto) 6.06 10^3/uL (1.8-7.7) 12/16/21 05:28 Lymph # (Auto) 2.1 10^3/uL (0.8-4.8) 12/16/21 05:28 Davis # (Auto) 0.6 10^3/uL (0.2-0.9) 12/16/21 05:28 Eos # (Auto) 0.0 10^3/uL (0.0-0.8) 12/16/21 05:28 Baso # (Auto) 0.0 10^3/uL (0.0-0.1) 12/16/21 05:28 Nucleated RBC % (auto) 0 % 12/16/21 05:28 Nucleated RBCs # 0.0 /100WBC 12/16/21 05:28 Blood Type A Positive 12/16/21 05:28 Rho(D) Type Positive 12/16/21 05:28 Vitals Last Vital Signs Temp 96.8 F L 12/18/21 16:48 Pulse 93 12/18/21 16:48 Resp 15 12/18/21 04:34 BP 116/62 12/18/21 16:48 Pulse Ox 99 12/18/21 04:34 O2 Del Method 12/18/21 04:34 Discharge Plan Discharge Patient Disposition: Home Condition: Good Prescriptions: New ibuprofen 800 mg Tablet 800 mg PO TID Qty: 45 0RF hydrocodone-acetaminophen 5-325 mg Tablet 1 tab PO Q4H PRN (Reason: Moderate To Severe Pain) Qty: 20 0RF docusate sodium 100 mg Capsule 100 mg PO BID Qty: 10 0RF -U 106.5-1 mg Capsule 1 cap PO BREAKFAST Qty: 100 1RF Continued acetaminophen 500 mg Tablet 1,000 mg PO Q4H PRN (Reason: Pain) Discontinued ibuprofen 200 mg Tablet 400 mg PO Q4H PRN (Reason: Pain) Discharge Orders: Discharge Order (Routine); Ordered 12/18/21 Ordered By: Mckenzie Carter Referrals: Mckenzie Carter MD [Physician] - 12/20/21 11:45 am Discharge Diet: Usual diet Discharge Activity: Limit activity as instructed Patient Instructions: Perineal Care (DC), and Nipple Soreness (DC), and Breast Engorgement (DC), and Plugged Ducts (DC), and Your Diet (DC), Bleeding (DC), Breast Care for the Mother (DC), OB - Emma/Nelsy, OB Discharge Report, OB Care at Home, Opioid Safety, OB Proud Parent Packet Activity Restrictions/Additional Instructions: Post op follow up with Dr. Carter on 12/20 @ 11:45 am, 6 week visit on 01/27 @ 2:00 pm. 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
[2021-12-18 19:07] VITALS: BP 121/63; PULSE 102; TEMP 36.4
[2021-12-18 19:13] VITALS: BP 121/63; PULSE 102; TEMP 36.4
== END 2021-12-18 19:10 | disposition home or self-care (01) | DRG 787 ==
PROVIDERS: Admitting Provider Family Medicine; Visit Provider Family Medicine
PROC: 10D00Z1 Extraction of Products of Conception, Low, Open Approach (ICD-10-PCS; CPT 59514; principal; 2021-12-16 07:00)
DX: O34.211 Maternal care for low transverse scar from previous cesarean delivery (principal); O71.5 Other obstetric injury to pelvic organs; Z3A.39 39 weeks gestation of pregnancy; Z37.0 Single live birth; O99.344 Other mental disorders complicating childbirth; O99.824 Streptococcus B carrier state complicating childbirth; O71.89 Other specified obstetric trauma; F32.A Depression, unspecified
CPT/HCPCS: 12345; 36415; 51702; 51798; 59409; 76857; 85025; 85027; 86900; 90471; 90686; 96374; 96376; J1200; J1885; J2274; J2370; J2405; J2765; J3010; J3490

== ENCOUNTER → 2023-02-23 12:16 | Outpatient (BNVA) | payer BC, MEDICAID, SELFPAY | PROVIDERS: Visit Provider Obstetrics & Gynecology | DX: Z30.9 Encounter for contraceptive management, unspecified (principal); Z30.430 Encounter for insertion of intrauterine contraceptive device | CPT/HCPCS: 81025 ==

== ENCOUNTER → 2024-09-08 18:12 | Outpatient (BNVA) | payer MEDICAID, SELFPAY | PROVIDERS: Visit Provider Nurse Practitioner | DX: J02.9 Acute pharyngitis, unspecified (principal); J35.1 Hypertrophy of tonsils; J02.0 Streptococcal pharyngitis | CPT/HCPCS: 87880 ==

== ENCOUNTER → 2025-01-03 09:54 | Outpatient (BNVA) | payer MEDICAID, SELFPAY | PROVIDERS: Visit Provider Obstetrics & Gynecology | DX: Z01.419 Encounter for gynecological examination (general) (routine) without abnormal findings (principal) | CPT/HCPCS: 87624 ==